=== PATIENT | female | born 1980 | race Asian ===

== ENCOUNTER 2024-11-28 11:56 | Emergency (ER) | payer OTHER ==
[~2024-11-28] VITALS: Ht 157.4 cm; Wt 65.3 kg
== END 2024-11-28 14:00 | disposition left against medical advice (07) ==
LOC: ED 11:56
DX: S00.03XA Contusion of scalp, initial encounter (principal); Z88.8 Allergy status to other drugs, medicaments and biological substances; W10.8XXA Fall (on) (from) other stairs and steps, initial encounter; Y93.89 Activity, other specified; Y92.89 Other specified places as the place of occurrence of the external cause; Y99.8 Other external cause status